=== PATIENT | female | born 2000 | race Caucasian/White ===

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

== ENCOUNTER 2020-03-11 10:48 | Emergency (ER) | payer SELFPAY ==
[2020-03-11 10:49] VITALS: BP 112/79; PULSE 87; RESP 16; TEMP 36.6; O2SAT 100; BMI 46.8
--- NOTE | 2020-03-11 10:59 | ED.VIS.GEN ---
History of Present Illness Chief Complaint: GI Bleed Onset: Today Narrative: 19-year-old female with past medical history of anxiety presents with concern for hematemesis. Patient states that she has had an upset stomach for approximately 2 days. States that this morning she went to the bathroom and had a small episode of wetting which she describes as bright red blood. States that it was not a significant amount. Denies any significant abdominal pain at this time. Denies any chest pain, shortness of breath, lightheadedness, dizziness, urinary symptoms. Patient is not on anticoagulation. Denies any recent trauma. Patient denies any significant alcohol abuse. Patient is not a smoker. Past Medical History - Allergies and Home Meds Allergies/Adverse Reactions: Allergies citalopram Allergy (Verified 03/11/20 10:53) Rash erythromycin base [Erythromycin Base] Allergy (Verified 03/11/20 10:53) Unknown prednisone Allergy (Verified 03/11/20 10:53) Rash Primary Care Physician: [facility] Doctor,Out of [NON-STAFF] - Prior records reviewed: Yes Past Medical History: - - anxiety Surgical History: - - TM tubes Lives: With Family Smoking Status: Former smoker Alcohol: Occasional Drugs: None Review of Systems General: Denies: Chills, Fever, Sweats Eyes: Denies: Visual changes - bilaterally, Diplopia ENT: Denies: Rhinorrhea, Sore throat Cardiovascular: Denies: Chest pain, Palpitations Respiratory: Denies: Dyspnea, Cough, Dyspnea on exertion Gastrointestinal: Reports: - - hematemesis. Denies: Abdominal pain, Nausea, Vomiting, Diarrhea, Melena, Hematochezia Genitourinary: Denies: Dysuria, Hematuria, Frequency Musculoskeletal: Denies: Back pain, Extremity Pain Skin: Denies: Rash, Wounds Neurological: Denies: Headache, Weakness, Numbness Physical Exam Vital Signs/Narrative: Vital Signs Temp Pulse Resp BP Pulse Ox 03/11/20 10:49 97.8 F 87 16 112/79 100 Inital Vital Signs reviewed: Yes General: Well nourished, Well developed, No Acute Distress Head: Normocephalic, Atraumatic Eyes: Perrl, EOMI ENT: Moist mucous membranes, No rhinorrhea Neck: Supple, Nontender Cardiovascular: Regular rate, Regular rhythm, No murmurs Respiratory: No distress, CTA bilaterally, Chest nontender Abdomen: Soft, Nontender, Nondistended, Normal bowel sounds Back: Nontender, Normal Inspection Extremities: Nontender, No edema Skin: Normal color, No rash Neurological: Alert, Oriented x3, Cranial nerves II-XII grossly intact, Normal Strength, Normal Sensation Psychological: Normal affect, Normal Mood Diagnostic/Tx/Re-eval Laboratory Data 03/11/20 11:04 WBC 7.6 RBC 4.74 Hgb 13.3 Hct 41.9 MCV 88.4 MCH 28.1 MCHC 31.7 L RDW Std Deviation 43.1 RDW Coeff of Kanika 13.2 Plt Count 324 MPV 9.2 Immature Gran % (Auto) 0.400 Neut % (Auto) 50.2 Lymph % (Auto) 36.1 [place] % (Auto) 10.7 H Eos % (Auto) 1.7 Baso % (Auto) 0.9 Absolute Neuts (auto) 3.8 Absolute Lymphs (auto) 2.73 Nucleated RBC % 0 - Medical Decision Making Patient appears well and nontoxic. Vital signs within normal limits. Hemoglobin normal. Patient has no history of melena or hematochezia. At this time rectal exam will be deferred. Patient had a small episode of hematemesis. She has been monitored in the emergency department without any episodes of vomiting. Will be given Pepcid for home as well as gastroenterologic follow-up if she continues to have these episodes. Asked to return if she has a larger bout of hematemesis. Patient agreeable and discharged home in stable condition. Impression: 1. Hematemesis 2. Abdominal cramping ED Disposition - Plan for ED Patient: Disposition: Home or Assisted Living Instructions: ED Peptic Ulcer Disease (All Causes) Prescriptions: Famotidine [Pepcid] 20 mg PO BID #28 tab Prescription Printed Referrals: Shukri Bridges MD [NON-STAFF] - 3-5 Days if not improving
[2020-03-11 11:11] LABS: Absolute Lymphocyte Count 2.73 X10^3/uL (0.83-4.51); Absolute Neutrophil Count 3.8 X10^3/uL (2.0-7.7); Basophil# 0.07 X10^3/uL; Basophil% 0.9 % (0-1); Eosinophil# 0.13 X10^3/uL; Eosinophils% 1.7 % (0-5); Hematocrit 41.9 % (37-47); Hemoglobin 13.3 g/dL (12.0-15.0); Lymphocyte # 2.73 X10^3/ul (4.0); Lymphocyte % 36.1 % (19-41); Mean Corp Hgb Conc 31.7 g/dL (32-36); Mean Corpuscular Hgb 28.1 pg (27.0-32.0); Mean Corpuscular Volume 88.4 fL (81-99); Mean Platelet Vol. 9.2 fl (6.2-12.0); Monocyte# 0.81 X10^3/uL; Monocyte% 10.7 % (0-10); NRBC Flagged by Analyzer 0 % (0-5); Neutrophil % 50.2 % (47-70); Platelet Count 324 K/mm3 (150-450); RBC Distribution Width CV 13.2 % (11.6-14.6); RBC Distribution Width SD 43.1 fl (35.1-43.9); Red Blood Count 4.74 M/mm3 (4.2-5.4); White Blood Count 7.6 K/mm3 (4.4-11.0)
== END 2020-03-11 11:35 | disposition home or self-care (01) ==
PROVIDERS: Emergency Provider Emergency Medicine; PCP Nurse Practitioner Adult Health
DX: K92.0 Hematemesis (principal); R10.9 Unspecified abdominal pain; Z87.891 Personal history of nicotine dependence
CPT/HCPCS: 36415; 85025; 99282

== ENCOUNTER 2024-02-20 16:50 | Emergency (ER) | payer SELFPAY ==
[2024-02-20 16:50] VITALS: BP 147/94; PULSE 89; RESP 18; TEMP 37.1; O2SAT 100; BMI 56.2
--- NOTE | 2024-02-20 17:14 | EDS_ITS ---
HPI History of Present Illness Chief Complaint: Shortness of Breath Informant: patient Onset/Context/Timing Onset: Days Context: gradual Timing: Continuous Quality: Positive for Dyspnea on exertion Worsened by: Exertion and - (Talking, dust) Relieved by: Nothing Associated Symptoms cough, sore throat and yellow sputum; Negative for rhinorrhea, post nasal drip, ear pain, fever, chills, sweats, clear sputum, white sputum or green sputum Chest Pain: Positive for Intermittent and Burning Narrative Narrative: Patient presents with shortness that has been getting worse over the past few days. Patient states it is gradually gotten worse. Patient states her breathing is worse with any exertion. Patient states that is also worse with talking and with exposure to dust. Patient states nothing seems to help with it. Patient admits to a cough with some yellow sputum. Patient denies any fevers or chills. Patient does admit to a sore throat. Patient also admits to burning pain in her chest. PE Risk Factors: Negative for Cancer, OCP + Smoking + > 35, Prior DVT or PE, Recent immobilization, Recent surgery or Recent travel [facility] Medical History (Updated 02/20/24 @ 19:[address] Haresh Ochoa, DO) Migraine headache Asthma Home Medications ?Medication ?Instructions ?Recorded ?Last Taken ?Type famotidine 20 mg tablet 20 mg PO BID #28 tabs 03/11/20 Unknown Rx albuterol sulfate 90 mcg/actuation 1 - 2 puff inhalation Q4H PRN PRN 02/20/24 Unknown Rx aerosol inhaler (Ventolin HFA) Wheezing ##1 Allergy/AdvReac Type Severity Reaction Status Date / Time citalopram Allergy Rash Verified 02/20/24 16:51 erythromycin base Allergy Unknown Verified 02/20/24 16:51 (Erythromycin Base) prednisone Allergy Rash Verified 02/20/24 16:51 Surgical History (Updated 02/20/24 @ 17:[address] Haresh Ochoa, DO) Hx of tympanostomy tubes History of tonsillectomy and adenoidectomy Hx of appendectomy Social History Smoking Status: Former smoker ROS ROS ED Constitutional Constitutional ED: Denies chills or fever(s) Eyes Eyes: Denies blurry vision or change in vision ENT ENT ED: Denies rhinorrhea or sore throat Cardiovascular Cardiovascular: Reports chest pain; Denies palpitations Respiratory/Chest Respiratory/Chest: Reports cough, dyspnea and sputum Gastrointestinal Gastrointestinal: Reports nausea; Denies vomiting Genitourinary Genitourinary ED: Denies dysuria or hematuria Musculoskeletal Musculoskeletal: Reports back pain and neck pain Integumentary Denies abscess or rash Neurologic Neurologic: Reports headache(s); Denies weakness Allergic/Immunologic Allergic/Immunologic ED: Denies mouth swelling or urticaria EXAM Physical Exam Const Vital Signs: 02/20/24 16:50 02/20/24 16:50 02/20/24 17:45 Temperature 98.7 F Temperature Source Oral Pulse Rate 89 83 Respiratory Rate 18 12 Respiratory Effort Normal Non-Labored Respiratory Depth Normal Respiratory Pattern Normal Normal Blood Pressure 147/94 H Blood Pressure Mean 111 Pulse Ox 100 Oxygen Delivery Method Room Air Room Air 02/20/24 18:50 Temperature Temperature Source Pulse Rate 81 Respiratory Rate 18 Respiratory Effort Respiratory Depth Respiratory Pattern Blood Pressure 136/77 H Blood Pressure Mean 96 Pulse Ox 98 Oxygen Delivery Method Room Air Positive well nourished and well developed General Appearance ED: well developed and NAD HEENT Reports moist mucous membranes atraumatic Neck supple and no JVD Resp normal respiratory effort and clear to auscultation bilaterally Cardio regular rate and regular rhythm GI non-tender and non-distended Palpation: soft Neuro oriented x3, CN's II-XII intact bilaterally and no sensory deficits noted [place] Coma Scale: document GCS findings Spontaneous Obeys Commands Oriented 15 Sensorium / Orientation: alert Speech: speech normal Motor Exam: strength 5/5 throughout MDM MDM MDM Narrative Medical decision making narrative: Differential diagnosis includes asthma exacerbation, pneumonia, bronchitis, and upper respiratory infection. Chest x-ray will be obtained to assess for pneumonia and bronchitis. CBC will be obtained to assess for leukocytosis and anemia. Basic metabolic profile will be obtained to assess for electrolyte abnormality and renal function. Lab Data Attestation: I reviewed the patient's lab results. Lab results narrative: CBC was reviewed and was within normal limits. Basic metabolic profile was reviewed and was essentially within normal limits. Labs: Laboratory Results - last 24 hr 02/20/24 17:32 WBC 7.6 RBC 4.40 Hgb 12.4 Hct 38.6 MCV 87.7 MCH 28.2 MCHC 32.1 RDW Std Deviation 42.2 RDW Coeff of Kanika 13.1 Plt Count 392 MPV 9.9 Immature Gran % (Auto) 0.400 Neut % (Auto) 58.7 Lymph % (Auto) 27.4 [place] % (Auto) 9.3 Eos % (Auto) 3.4 Baso % (Auto) 0.8 Absolute Neuts (auto) 4.5 Absolute Lymphs (auto) 2.08 Nucleated RBC % 0 Sodium 138 Potassium 4.0 Chloride 108 H Carbon Dioxide 27.0 Anion Gap 3 L BUN 10 Creatinine 0.66 Estim Creat Clear Calc 191.32 Est GFR (MDRD) Af Amer 139 Est GFR (MDRD) Non-Af 115 BUN/Creatinine Ratio 15.1 Glucose 119 H Calcium 8.8 Radiography Chest X-Ray - ED: 2 View, Read by ED Physician, Read by Radiologist and No Acute Disease Diagnostic Testing: Clinical Impression(s) from Imaging Studies Chest X-Ray 02/20/24 18:00 IMPRESSION: Normal x-ray examination of the chest. Electronically Signed: Jim Shultz MD at 18:15 EST , PA and lateral chest x-ray was obtained. There are 2 views. On my independent interpretation, lung short are clear. There is normal cardiac silhouette. Bony thorax is normal. There is no acute process noted. Radiologist also interpreted the x-ray and agrees. Treatment and Re-Evaluation :: Patient was given a DuoNeb aerosol here. Patient was feeling better on reevaluation. Patient was given a prescription for an albuterol inhaler. Flora yanez was instructed to follow-up with her primary care physician in 5 to 7 days. Patient was instructed to take Tylenol or ibuprofen as needed for pain in her right shoulder. Patient and mother understood and were agreeable with the plan. All questions were answered. Discharge Plan Triage Chief Complaint: Shortness of Breath ED Provider: Haresh Ochoa Dx/Rx/DC Orders Clinical Impression: Asthma, Dyspnea Instructions: ED Asthma, Acute (Adult) Prescriptions: New albuterol sulfate [Ventolin HFA] 90 mcg/actuation HFA aerosol inhaler 1 - 2 puff inhalation Q4H PRN PRN (Reason: Wheezing) Qty: 1 0RF No Action famotidine 20 MG tablet 20 mg PO BID Qty: 28 0RF Primary Care Provider: Oumou Hutchison NP Referrals: Priscila Milligan NP, SIGNAL OPERATOR LINGUIST-C [Non-Staff] - 5-7 Days Print Language: Lao Disposition Disposition: Home, Self Care
[2024-02-20] MEDS: Ipratropium/Albuterol Sulfate 3 ML AMPUL.NEB INHALATION (17:43)
[2024-02-20 17:45] VITALS: PULSE 83; RESP 12
[2024-02-20 17:47] LABS: Absolute Lymphocyte Count 2.08 X10^3/uL (0.83-4.51); Absolute Neutrophil Count 4.5 X10^3/uL (2.0-7.7); Basophil# 0.06 X10^3/uL; Basophil% 0.8 % (0-1); Eosinophil# 0.26 X10^3/uL; Eosinophils% 3.4 % (0-5); Hematocrit 38.6 % (37-47); Hemoglobin 12.4 g/dL (12.0-15.0); Lymphocyte # 2.08 X10^3/ul (0.83-4.51); Lymphocyte % 27.4 % (19-41); Mean Corp Hgb Conc 32.1 g/dL (32-36); Mean Corpuscular Hgb 28.2 pg (27.0-32.0); Mean Corpuscular Volume 87.7 fL (81-99); Mean Platelet Vol. 9.9 fl (6.2-12.0); Monocyte# 0.71 X10^3/uL; Monocyte% 9.3 % (0-10); NRBC Flagged by Analyzer 0 % (0-5); Neutrophil # 4.46 X10^3/uL (2.7-7.7); Neutrophil % 58.7 % (47-70); Platelet Count 392 K/mm3 (150-450); RBC Distribution Width CV 13.1 % (11.6-14.6); RBC Distribution Width SD 42.2 fl (35.1-43.9); White Blood Count 7.6 K/mm3 (4.4-11.0)
--- NOTE | 2024-02-20 18:00 | RAD_ITS ---
STUDY: X-RAY CHEST REASON FOR EXAM: Female, 23 years old. Dyspnea TECHNIQUE: PA and lateral views of the chest. COMPARISON: None. FINDINGS: The lungs are clear and expanded. There is no demonstrated pleural abnormality. Normal size heart. Normal mediastinum and luis. Normal visualized pulmonary arteries. Normal visualized aortic arch and descending thoracic aorta. Normal visualized thoracic spine. Normal visualized ribs, clavicles, and shoulders. There is no demonstrated abnormality of the visualized soft tissue structures of the upper abdomen. RAD/Chest PA and Lateral IMPRESSION: Normal x-ray examination of the chest. Electronically Signed: Jim Shultz MD at 18:15 [facility] ,
[2024-02-20 18:09] LABS: Anion Gap 3 (5-15); BUN 10 mg/dL (7-18); BUN/Creat Ratio 15.1 RATIO (10-20); Calcium,Total 8.8 mg/dL (8.5-10.1); Chloride 108 mmol/L (98-107); Creatinine, Serum 0.66 mg/dL (0.55-1.02); EST Glomerular Filtration Rate 115 mL/min (>60); Est Glom Filt Rate - Afr Amer 139 mL/min (>60); Estimated Creatinine Clearance 191.32 ml/min; Glucose 119 mg/dL (74-106); Sodium Level 138 mmol/L (136-145)
[2024-02-20 18:50] VITALS: BP 136/77; PULSE 81; RESP 18; O2SAT 98
[2024-02-20 19:16] VITALS: BP 109/79; PULSE 78; RESP 18; TEMP 36.9; O2SAT 97
== END 2024-02-20 19:21 | disposition home or self-care (01) ==
PROVIDERS: Emergency Provider Emergency Medicine; PCP Nurse Practitioner Family; Visit Provider Emergency Medicine
DX: J45.909 Unspecified asthma, uncomplicated (principal); M25.511 Pain in right shoulder; Z87.891 Personal history of nicotine dependence
CPT/HCPCS: 71046; 80048; 85025; 94640; 99283; A4216